=== PATIENT | female | born 1965 | race Caucasian/White ===

== ENCOUNTER 2023-09-28 14:23 | Inpatient (IN) | payer OTHER ==
[2023-09-28] MEDS: SODIUM CHLORIDE 0.9% 500 ML 500 ML IV ONE (15:01)
[2023-09-28 15:29] LABS: Basophils % (A) 0 %; Eosinophils # (A) 0.2 k/uL (0-0.7); Eosinophils % (A) 1 %; HCT 39.5 % (34.0-46.0); HGB 12.9 gm/dL (11.4-16.0); Lymphocytes # (A) 1.6 k/uL (1.0-4.8); Lymphocytes % (A) 9 %; MCH 28.5 pg (25.0-35.0); MCHC 32.5 g/dL (31.0-37.0); MCV 87.8 fL (80.0-100.0); Mean Platelet Volume 8.3; Monocytes # (A) 0.8 k/uL (0-1.0); Monocytes % (A) 4 %; Neutrophils # (A) 15.8 k/uL (1.3-7.7); Neutrophils % (A) 85 %; Platelet Count 339 k/uL (150-450); RDW 13.6 % (11.5-15.5); WBC 18.5 k/uL (3.8-10.6)
--- NOTE | 2023-09-28 15:29 | ED ---
General Adult HPI - General Chief complaint: Abdominal Pain Stated complaint: Abd pain Time Seen by Provider: 09/28/23 14:35 Source: patient, EMS, RN notes reviewed, old records reviewed Mode of arrival: ambulatory Limitations: no limitations - History of Present Illness Initial comments: This is a 58-year-old female who presents to the emergency department from [facility]. Patient was there because of abdominal pain. Patient was diagnosed with small bowel obstruction and colitis consistent with possibly Crohn's. Patient states she has no previous history of Crohn's. Patient states she was vomiting and had quite a bit of abdominal pain but currently she is not nauseous and only has mild pain because she was given antinausea medication and pain medicine. Patient has any chest pain difficulty breathing shortness of breath. Patient has any fever chills or cough. Patient states she initially went to [facility] but they were not taking care of her and she stayed in the waiting room for a while she got fed up so she had her friend drive her to [facility]. - Related Data Allergies Allergy/AdvReac Type Severity Reaction Status Date / Time bee venom protein (honey bee) Allergy Anaphylaxis Verified 09/28/23 14:40 ibuprofen [From Motrin] Allergy Abdominal Verified 09/28/23 14:40 Pain ketorolac [From Toradol] Allergy Itching Verified 09/28/23 14:40 Penicillins Allergy Unknown Verified 09/28/23 14:40 Childhood prochlorperazine Allergy Unknown Verified 09/28/23 14:40 [From Compazine] sulfamethoxazole Allergy Rash/Hives Verified 09/28/23 14:40 [From Bactrim] tetracycline Allergy Unknown Verified 09/28/23 14:40 Childhood trimethoprim [From Bactrim] Allergy Rash/Hives Verified 09/28/23 14:40 Review of Systems ROS Statement: Those systems with pertinent positive or pertinent negative responses have been documented in the HPI. ROS Other: All systems not noted in ROS Statement are negative. Past Medical History Additional Past Medical History / Comment(s): miagraine History of Any Multi-Drug Resistant Organisms: None Reported Past Surgical History: Cholecystectomy, Hysterectomy, Tonsillectomy Past Psychological History: Anxiety, Bipolar, Depression, PTSD Smoking Status: Former smoker Past Alcohol Use History: None Reported Past Drug Use History: None Reported General Exam - General Exam Comments Initial Comments: GENERAL: Patient is well-developed and well-nourished. Patient is nontoxic and well- hydrated and is in mild distress. ENT: Neck is soft and supple. No significant lymphadenopathy is noted. Oropharynx is clear. Moist mucous membranes. Neck has full range of motion without eliciting any pain. EYES: The sclera were anicteric and conjunctiva were pink and moist. Extraocular movements were intact and pupils were equal round and reactive to light. Eyelids were unremarkable. PULMONARY: Unlabored respirations. Good breath sounds bilaterally. No audible rales rhonchi or wheezing was noted. CARDIOVASCULAR: There is a regular rate and rhythm without any murmurs gallops or rubs. ABDOMEN: Patient has mild diffuse abdominal tenderness no point tenderness SKIN: Skin is clear with no lesions or rashes and otherwise unremarkable. NEUROLOGIC: Patient is alert and oriented x3. Cranial nerves II through XII are grossly intact. Motor and sensory are also intact. Normal speech, volume and content. Symmetrical smile. MUSCULOSKELETAL: Normal extremities with adequate strength and full range of motion. LYMPHATICS: No significant lymphadenopathy is noted PSYCHIATRIC: Normal psychiatric evaluation. Limitations: no limitations Course Vital Signs 09/28/23 14:33 Temperature 97.7 F Pulse Rate 73 Respiratory 18 Rate Blood Pressure 126/96 O2 Sat by Pulse 96 Oximetry Medical Decision Making - Medical Decision Making Was pt. sent in by a medical professional or institution (LENORE León, [facility], urgent care, hospital, or intermediate...) When possible be specific @ -Patient was sent to us from [facility] Did you speak to anyone other than the patient for history (EMS, parent, family, police, friend...)? What history was obtained from this source @ -The ER doc spoke to Dr. Hagen prior to arrival and gave an update on the patient's condition Did you review nursing and triage notes (agree or disagree)? Why? @ -I reviewed and agree with nursing and triage notes Were old charts reviewed (outside hosp., previous admission, EMS record, old EKG, old radiological studies, urgent care reports/EKG's, intermediate records)? Report findings @ -I reviewed the patient's charts from [facility] and all the lab work and CT scan. Differential Diagnosis? @ -Differential Abdominal Pain Women: Appendicitis, Cholecystitis, diverticulosis, ischemic bowel, pancreatitis, hepatitis, UTI, gastroenteritis, AAA, incarcerated hernia, bowel obstruction, constipation, inflammatory bowel, hepatitis, peptic ulcer disease, splenic infarction, perforated viscus, vulvitis, ovarian torsion, PID, kidney stone, placenta abruption, this is not meant to be an all-inclusive list EKG interpreted by me (3pts min.). @ -As above X-rays interpreted by me (1pt min.). @ -None done CT interpreted by me (1pt min.). @ -None done U/S interpreted by me (1pt. min.). @ -None done What testing was considered but not performed or refused? (CT, X-rays, U/S, labs)? Why? @ -None What meds were considered but not given or refused? Why? @ -None Did you discuss the management of the patient with other professionals (professionals i.e. , PA, BILLET SHEARER, lab, RT, psych nurse, social work supervisor, automatic corn grinder operator, teacher, combat systems officer, casework specialist)? Give summary @ -I spoke with patient [place] hospitalist agreed to admit the patient admit the patient wrote admitting orders Was smoking cessation discussed for >3mins.? @ -No Was critical care preformed (if so, how long)? @ -No Were there social determinants of health that impacted care today? How? (Homelessness, low income, unemployed, alcoholism, drug addiction, transpor tation, low edu. Level, literacy, decrease access to med. care, senior care, rehab)? @ -No Was there de-escalation of care discussed even if they declined (Discuss DNR or withdrawal of care, Hospice)? DNR status @ -No What co-morbidities impacted this encounter? (DM, HTN, Smoking, COPD, CAD, Cancer, CVA, ARF, Chemo, Hep., AIDS, mental health diagnosis, sleep apnea, morbid obesity)? @ -None Was patient admitted / discharged? Hospital course, mention meds given and route, prescriptions, significant lab abnormalities, going to OR and other pertinent info. @ -Patient's abdominal pain was minimal at this point time and her nausea was gone so I spoke with the hospitalist admit the patient I consulted surgery for the partial small bowel obstruction and ordered Zofran and pain medication for the patient. Patient also antibiotics started while she was in [facility] so I continue the antibiotics Undiagnosed new problem with uncertain prognosis? @ -No Drug Therapy requiring intensive monitoring for toxicity (Heparin, Nitro, Insulin, Cardizem)? @ -No Were any procedures done? @ -No Diagnosis/symptom? @ -Colitis Acute, or Chronic, or Acute on Chronic? @ -Acute Uncomplicated (without systemic symptoms) or Complicated (systemic symptoms)? @ -Complicated Side effects of treatment? @ -No Exacerbation, Progression, or Severe Exacerbation? @ -No Poses a threat to life or bodily function? How? (Chest pain, [place], ID, pneumonia, PE, COPD, DKA, ARF, appy, cholecystitis, CVA, Diverticulitis, Homicidal, Suicidal, threat to staff... and all critical care pts) @ -Yes this could lead to sepsis and endorgan dysfunction Diagnosis/symptom? @ -Partial small bowel obstruction Acute, or Chronic, or Acute on Chronic? @ -Acute Uncomplicated (without systemic symptoms) or Complicated (systemic symptoms)? @ -Complicated Side effects of treatment? @ -None Exacerbation, Progression, or Severe Exacerbation] @ -No Poses a threat to life or bodily function? @ -Yes this can lead to potential bowel or severe vomiting which could lead to electrolyte abnormalities. Disposition Clinical Impression: Partial small bowel obstruction, Colitis Disposition: ADMITTED IP TO THIS HOSP Referrals: Ricky Chawla DO [Primary Care Provider] - 1-2 days Time of Disposition: 15:28
[2023-09-28] MEDS: LEVOFLOXACIN 750MG-D5W PMX 750 MG in DEXTROSE/WATER 1 150ML.BAG IVPB SCH (15:36)
[2023-09-28] MEDS: SODIUM CHLORIDE 0.9% 1,000 ML IV ONE (15:42)
[2023-09-28 15:44] LABS: ALT 11 U/L (4-34); AST 18 U/L (14-36); African American GFR (CKD) >90 (>60 ml/min/1.73 sqM); Albumin 3.9 g/dL (3.5-5.0); Alkaline Phosphatase 94 U/L (38-126); Anion Gap 8 mmol/L; Blood Urea Nitrogen 12 mg/dL (7-17); Calcium 8.6 mg/dL (8.4-10.2); Carbon Dioxide 24 mmol/L (22-30); Chloride 112 mmol/L (98-107); Glucose 114 mg/dL (74-99); Non-African American GFR(CKD) >90 (>60 ml/min/1.73 sqM); Potassium 3.8 mmol/L (3.5-5.1); Sodium 144 mmol/L (137-145); Total Bilirubin 0.6 mg/dL (0.2-1.3); Total Protein 6.3 g/dL (6.3-8.2)
[2023-09-28] MEDS: metroNIDAZOLE-NS PMX 500 MG in SALINE 1 100ML.BAG IVPB SCH (17:06)
[2023-09-28] MEDS: ONDANSETRON 4 MG/2 ML VIAL IVP PRN (17:14)
[2023-09-28] MEDS: HYDROmorphone 0.5 MG/0.5 ML SYRINGE IVP PRN (17:48)
--- NOTE | 2023-09-28 18:56 | P.HPIM ---
History of Present Illness H&P Date: 09/28/23 Chief Complaint: Abdominal pain 58-year-old female who presents to the emergency department from [facility]. Patient was there because of abdominal pain. Patient was diagnosed with small bowel obstruction and colitis consistent with possibly Crohn's. Patient states she has no previous history of Crohn's. Patient states she was vomiting and had quite a bit of abdominal pain but currently she is not nauseous and only has mild pain because she was given antinausea medication and pain medicine. Patient has any chest pain difficulty breathing shortness of breath. Patient has any fever chills or cough. Patient states she initially went to [facility] but they were not taking care of her and she stayed in the waiting room for a while she got fed up so she had her friend drive her to [facility]. Blood work completed in ED reveals a WBC of 18.5, hemoglobin of 12.9 and platelet count of 339, sodium 144, potassium 3.8, BUNs/creatinine of 12/0.69 and blood glucose of 114 Review of Systems REVIEW OF SYSTEMS: CONSTITUTIONAL: No fever, no malaise, no fatigue. HEENT: No recent visual problems or hearing problems. Denied any sore throat. CARDIOVASCULAR: No chest pain, orthopnea, PND, no palpitations, no syncope. PULMONARY: No shortness of breath, no cough, no hemoptysis. GASTROINTESTINAL: No diarrhea, no nausea, no vomiting, no abdominal pain. NEUROLOGICAL: No headaches, no weakness, no numbness. HEMATOLOGICAL: Denies any bleeding or petechiae. GENITOURINARY: Denies any burning micturition, frequency, or urgency. MUSCULOSKELETAL/RHEUMATOLOGICAL: Denies any joint pain, swelling, or any muscle pain. ENDOCRINE: Denies any polyuria or polydipsia. The rest of the 14-point review of systems is negative. Past Medical History Additional Past Medical History / Comment(s): [facility] History of Any Multi-Drug Resistant Organisms: None Reported Past Surgical History: Cholecystectomy, Hysterectomy, Tonsillectomy Past Psychological History: Anxiety, Bipolar, Depression, PTSD Smoking Status: Former smoker Past Alcohol Use History: None Reported Past Drug Use History: None Reported Medications and Allergies Home Medications Medication Instructions Recorded Confirmed Type Atomoxetine HCl [Strattera] 40 mg PO DAILY 09/28/23 09/28/23 History Cyclobenzaprine [Flexeril] 10 mg PO TID PRN 09/28/23 09/28/23 History HYDROcodone/APAP 10-325MG [[place] 1 tab PO QID 09/28/23 09/28/23 History 10-325] Lansoprazole [Prevacid] 30 mg PO BID 09/28/23 09/28/23 History Metoprolol Succinate (ER) [Toprol 50 mg PO DAILY 09/28/23 09/28/23 History Xl] Propranolol [Inderal] 10 mg PO TID 09/28/23 09/28/23 History QUEtiapine XR [SEROquel XR] 150 mg PO HS 09/28/23 09/28/23 History Rosuvastatin Calcium [Crestor] 5 mg PO DAILY 09/28/23 09/28/23 History busPIRone HCL 15 mg PO BID PRN 09/28/23 09/28/23 History lamoTRIgine [LaMICtal] 100 mg PO DAILY 09/28/23 09/28/23 History lamoTRIgine [LaMICtal] 300 mg PO HS 09/28/23 09/28/23 History Allergies Allergy/AdvReac Type Severity Reaction Status Date / Time bee venom protein (honey bee) Allergy Anaphylaxis Verified 09/28/23 16:04 ibuprofen [From Motrin] Allergy Abdominal Verified 09/28/23 16:04 Pain ketorolac [From Toradol] Allergy Itching Verified 09/28/23 16:04 Penicillins Allergy Anaphylaxis Verified 09/28/23 16:04 prochlorperazine Allergy Unknown Verified 09/28/23 16:04 [From Compazine] sulfamethoxazole Allergy Anaphylaxis Verified 09/28/23 16:04 [From Bactrim] tetracycline Allergy Anaphylaxis Verified 09/28/23 16:05 trimethoprim [From Bactrim] Allergy Rash/Hives Verified 09/28/23 16:04 Physical Exam Vitals: Vital Signs Temp Pulse Resp BP Pulse Ox 09/28/23 15:42 74 18 155/76 94 L 09/28/23 14:33 97.7 F 73 18 126/96 96 Intake and Output 09/28/23 09/28/23 09/28/23 06:59 14:59 22:59 Other: Weight 77.111 kg GENERAL: Patient is well-developed and well-nourished. Patient is nontoxic and well- hydrated and is in mild distress. ENT:Neck is soft and supple. No significant lymphadenopathy is noted. Orop harynx is clear. Moist mucous membranes. Neck has full range of motion without eliciting any pain. EYES:The sclera were anicteric and conjunctiva were pink and moist. Extraocular movements were intact and pupils were equal round and reactive to light. Eyelids were unremarkable. PULMONARY:Unlabored respirations. Good breath sounds bilaterally. No audible rales rhonchi or wheezing was noted. CARDIOVASCULAR:There is a regular rate and rhythm without any murmurs gallops or rubs. ABDOMEN:Patient has mild diffuse abdominal tenderness no point tenderness SKIN: is clear with no lesions or rashes and otherwise unremarkable. NEUROLOGIC: Patient is alert and oriented x3. Cranial nerves II through XII are grossly intact. Motor and sensory are also intact. Normal speech, volume and content. Symmetrical smile. MUSCULOSKELETAL: Normal extremities with adequate strength and full range of m otion. LYMPHATICS:No significant lymphadenopathy is noted PSYCHIATRIC:Normal psychiatric evaluation. Results CBC & Chem 7: 09/28/23 15:00 09/28/23 15:00 Labs: Abnormal Lab Results - Last 24 Hours (Table) 09/28/23 09/28/23 Range/Units 15:00 15:00 WBC 18.5 H (3.8-10.6) k/uL Neutrophils # 15.8 H (1.3-7.7) k/uL Chloride 112 H (98-107) mmol/L Glucose 114 H (74-99) mg/dL Assessment and Plan Assessment: 1. Partial small bowel obstruction -Patient is being admitted for further surgery evaluation; remains n.p.o. -Started on IV fluids; we will monitor strict LASHONDA's; monitor renal function electrolytes -Will order abdominal x-ray with plans to insert an NG tube if bowel obstruction is worsening -Consult surgery for further evaluation 2. Colitis; patient has been placed on IV Levaquin and Flagyl; will cover continue with both medications; consult GI -Monitor CBC, CRP and procalcitonin 3. Hypertension; metoprolol 50 mg daily 4. Hyperlipidemia; Crestor 5 mg daily which will be placed on hold 5. Migraine headaches; patient takes Lamictal 100 mg every morning and 300 mg nightly 6. Bipolar disorder; currently on BuSpar, Seroquel and Strattera DVT prophylaxis; SCDs/subcu heparin CODE STATUS; full code
[2023-09-28] MEDS ORDERED: CYCLOBENZAPRINE 10 MG TAB PO PRN (21:46)
[2023-09-28] MEDS: PANTOPRAZOLE 40 MG/10 ML VIAL IVP SCH (21:56)
[2023-09-28] MEDS: QUEtiapine 25 MG TAB PO SCH (23:16)
[2023-09-28] MEDS: PROPRANOLOL 10 MG TAB PO SCH (23:16)
[2023-09-28] MEDS: METOPROLOL SUCCINATE (ER) 50 MG TAB.ER.24H PO SCH (23:16)
[2023-09-29] MEDS ORDERED: lamoTRIgine 100 MG TAB ONE ×2 (00:01→21:21)
[2023-09-29] MEDS ORDERED: QUEtiapine 25 MG TAB ONE ×2 (00:01→21:21)
[2023-09-29] MEDS ORDERED: PROPRANOLOL 10 MG TAB ONE (00:01)
[2023-09-29] MEDS ORDERED: metroNIDAZOLE-NS PMX 500 MG/100 ML BAG ONE (00:01)
[2023-09-29] MEDS ORDERED: METOPROLOL SUCCINATE (ER) 50 MG TAB.ER.24H PO ONE (00:01)
[2023-09-29] MEDS ORDERED: PANTOPRAZOLE 40 MG/10 ML VIAL ONE ×2 (00:01→21:20)
[2023-09-29] MEDS ORDERED: LEVOFLOXACIN 750MG-D5W PMX 750 MG/150 ML BAG IVPB ONE (00:01)
[2023-09-29] MEDS ORDERED: ATORVASTATIN 10 MG TAB ONE (00:01)
--- NOTE | 2023-09-29 01:52 | XR ---
EXAM: XR Chest, 1 View CLINICAL HISTORY: NG tube placement TECHNIQUE: Frontal view of the chest. COMPARISON: No relevant prior studies available. FINDINGS: Lungs: Subsegmental changes noted the lung bases, left slightly greater than right. No lobar consolidation. The pulmonary vasculature is unremarkable. Pleural space: No large pleural effusion or pneumothorax. Heart: Unremarkable. No cardiomegaly. Mediastinum: The mediastinal contours are unremarkable. No tracheal deviation. Bones/joints: Unremarkable. No acute fracture. Tubes, lines and devices: The nasogastric tube traverses the mediastinum and terminates immediately beyond the cardia of the stomach. The side-port is noted in the distal thoracic esophagus. IMPRESSION: The nasogastric tube traverses the mediastinum and terminates immediately beyond the cardia of the stomach. The side-port is noted in the distal thoracic esophagus. Recommend advancement approximately 5-6 cm for full placement of the stomach.
[2023-09-29 02:03] VITALS: BP 185/68; PULSE 72; RESP 16; TEMP 98.2
[2023-09-29] MEDS: busPIRone HCl 5 MG TAB PO PRN (03:37)
[2023-09-29] MEDS ORDERED: NON FORMULARY DRUG (Atomoxetine Hcl [Strattera] 40 MG Capsule) PO SCH (09:00)
[2023-09-29] MEDS ORDERED: ATORVASTATIN 10 MG TAB PO SCH (09:00)
[2023-09-29] MEDS ORDERED: PANTOPRAZOLE 40 MG TABLET PO SCH (09:00)
[2023-09-29] MEDS ORDERED: lamoTRIgine 100 MG TAB PO SCH ×2 (09:00→21:00)
[2023-09-29] MEDS ORDERED: metroNIDAZOLE-NS PMX 100 ML ONE ×2 (12:00→15:58)
[2023-09-29] MEDS ORDERED: HYDROmorphone 0.5 MG/0.5 ML SYRINGE ONE ×2 (12:00→18:01)
[2023-09-29] MEDS ORDERED: SALINE ONE ×2 (12:00→15:58)
--- NOTE | 2023-09-29 13:38 | XR ---
EXAM: XR Chest, 1 View CLINICAL HISTORY: ITS. REASON XR Reason: NG tube TECHNIQUE: Frontal view of the chest. COMPARISON: 09/28/23. FINDINGS/impression: Enteric tube has been advanced, the tip and side-port now projecting within the proximal stomach. Persistent enlargement of the cardiac silhouette. Question vascular congestion. Basilar opacities may reflect atelectasis, but airspace infiltrate is not excluded.
[2023-09-29] MEDS ORDERED: HEPARIN SODIUM,PORCINE 5,000 UNIT/ML 1 ML VIAL ONE (15:57)
[2023-09-30] MEDS ORDERED: SALINE ONE ×4 (00:22→18:22)
[2023-09-30] MEDS ORDERED: metroNIDAZOLE-NS PMX 100 ML ONE ×4 (00:22→18:22)
[2023-09-30] MEDS ORDERED: HYDROmorphone 0.5 MG/0.5 ML SYRINGE ONE ×4 (01:30→21:42)
[2023-09-30] MEDS ORDERED: HEPARIN SODIUM,PORCINE 5,000 UNIT/ML 1 ML VIAL ONE ×2 (08:52→15:29)
[2023-09-30] MEDS ORDERED: PANTOPRAZOLE 40 MG/10 ML VIAL ONE ×2 (08:52→21:11)
[2023-09-30] MEDS ORDERED: METOPROLOL SUCCINATE (ER) 50 MG TAB.ER.24H PO ONE (08:54)
[2023-09-30] MEDS ORDERED: lamoTRIgine 100 MG TAB ONE ×2 (08:54→21:11)
[2023-09-30] MEDS ORDERED: ATORVASTATIN 10 MG TAB ONE (08:54)
[2023-09-30] MEDS ORDERED: QUEtiapine 25 MG TAB ONE ×2 (08:55→21:12)
[2023-09-30] MEDS ORDERED: PROPRANOLOL 10 MG TAB ONE (09:00)
[2023-09-30] MEDS ORDERED: POTASSIUM CHLORIDE ER 20 MEQ TAB.ER PO ONE ×6 (12:15→14:12)
[2023-10-01] MEDS ORDERED: LEVOFLOXACIN 750MG-D5W PMX 750 MG/150 ML BAG IVPB ONE (00:01)
[2023-10-01] MEDS ORDERED: PROPRANOLOL 10 MG TAB ONE (00:01)
[2023-10-01] MEDS ORDERED: metroNIDAZOLE-NS PMX 100 ML ONE ×5 (00:27→23:38)
[2023-10-01] MEDS ORDERED: SALINE ONE ×5 (00:27→23:38)
[2023-10-01] MEDS ORDERED: HEPARIN SODIUM,PORCINE 5,000 UNIT/ML 1 ML VIAL ONE ×3 (00:28→23:39)
[2023-10-01] MEDS ORDERED: PANTOPRAZOLE 40 MG TABLET PO ONE ×2 (08:02→21:00)
[2023-10-01] MEDS ORDERED: lamoTRIgine 100 MG TAB ONE ×3 (08:03→21:04)
[2023-10-01] MEDS ORDERED: METOPROLOL SUCCINATE (ER) 50 MG TAB.ER.24H PO ONE (08:03)
[2023-10-01] MEDS ORDERED: ATORVASTATIN 10 MG TAB ONE (08:04)
[2023-10-01] MEDS ORDERED: QUEtiapine 25 MG TAB ONE ×2 (08:05→21:00)
[2023-10-01] MEDS ORDERED: SENNOSIDES 8.6 MG TAB ONE (10:03)
[2023-10-01] MEDS ORDERED: HYDROcodone/APAP 10-325MG 1 EACH TAB ONE ×4 (15:29→21:14)
[2023-10-02] MEDS ORDERED: LEVOFLOXACIN 750MG-D5W PMX 750 MG/150 ML BAG IVPB ONE (00:01)
[2023-10-02] MEDS ORDERED: PROPRANOLOL 10 MG TAB ONE (00:01)
[2023-10-02] MEDS ORDERED: metroNIDAZOLE-NS PMX 100 ML ONE ×3 (05:02→17:01)
[2023-10-02] MEDS ORDERED: SALINE ONE ×3 (05:02→17:01)
[2023-10-02] MEDS ORDERED: HYDROcodone/APAP 10-325MG 1 EACH TAB ONE ×4 (05:18→15:28)
[2023-10-02] MEDS ORDERED: HYDROmorphone 0.5 MG/0.5 ML SYRINGE ONE (08:23)
[2023-10-02] MEDS ORDERED: PANTOPRAZOLE 40 MG TABLET PO ONE ×2 (09:48→20:43)
[2023-10-02] MEDS ORDERED: HEPARIN SODIUM,PORCINE 5,000 UNIT/ML 1 ML VIAL ONE ×2 (09:48→15:09)
[2023-10-02] MEDS ORDERED: METOPROLOL SUCCINATE (ER) 50 MG TAB.ER.24H PO ONE (09:49)
[2023-10-02] MEDS ORDERED: QUEtiapine 25 MG TAB ONE ×2 (09:49→20:44)
[2023-10-02] MEDS ORDERED: lamoTRIgine 100 MG TAB ONE ×2 (09:49→20:44)
[2023-10-02] MEDS ORDERED: ATORVASTATIN 10 MG TAB ONE (09:49)
[2023-10-02] MEDS ORDERED: LORATADINE 10 MG TAB ONE (13:57)
[2023-10-02] MEDS ORDERED: POTASSIUM CHLORIDE ER 20 MEQ TAB.ER PO ONE ×2 (13:57)
[2023-10-02] MEDS ORDERED: ONDANSETRON 4 MG/2 ML VIAL ONE (18:13)
[2023-10-03] MEDS ORDERED: SALINE ONE ×2 (00:27→08:02)
[2023-10-03] MEDS ORDERED: metroNIDAZOLE-NS PMX 100 ML ONE ×2 (00:27→08:02)
[2023-10-03] MEDS ORDERED: HYDROcodone/APAP 10-325MG 1 EACH TAB ONE ×4 (02:46→12:04)
[2023-10-03] MEDS ORDERED: PANTOPRAZOLE 40 MG TABLET PO ONE (08:00)
[2023-10-03] MEDS ORDERED: METOPROLOL SUCCINATE (ER) 50 MG TAB.ER.24H PO ONE (08:01)
[2023-10-03] MEDS ORDERED: ATORVASTATIN 10 MG TAB ONE (08:01)
[2023-10-03] MEDS ORDERED: lamoTRIgine 100 MG TAB ONE (08:01)
[2023-10-03] MEDS ORDERED: QUEtiapine 25 MG TAB ONE (08:02)
[2023-10-03] MEDS ORDERED: HEPARIN SODIUM,PORCINE 5,000 UNIT/ML 1 ML VIAL ONE (08:02)
[2023-10-03] MEDS ORDERED: LORATADINE 10 MG TAB ONE (08:04)
--- NOTE | 2023-10-17 15:51 | HP ---
HISTORY AND PHYSICAL HISTORY OF PRESENT ILLNESS: The patient is a 58-year-old female who came in with complaints of abdominal pain, nausea, vomiting, was seen at an outside facility, found to have small-bowel obstruction, was transferred here. General Surgery was consulted. The patient has an NG tube in place. The patient did have a bowel movement and the patient is presently on Dilaudid for pain, will also use IV Tylenol for pain and general surgery and GI were consulted. REVIEW OF SYSTEMS: Further review of systems are negative except those mentioned above. PAST MEDICAL HISTORY: Hypertension, hyperlipidemia, migraine, PTSD, bipolar disorder, anxiety, depression. PAST SURGICAL HISTORY: Cholecystectomy, hysterectomy, and tonsillectomy. PRESENT MEDICATIONS: The patient is presently on, 1. Levofloxacin. 2. Metronidazole for possibility of colitis. 3. Ondansetron. 4. Hydromorphone. 5. Pantoprazole. 6. Cyclobenzaprine. 7. Lamictal. 8. Metoprolol. 9. Propranolol. 10.Atorvastatin. 11.Buspirone. 12.Protonix. 13.Seroquel. 14.Atomoxetine. VITAL SIGNS: Current vital signs are not available at this time because the computer system is unavailable at this time. PHYSICAL EXAMINATION: GENERAL: The patient is alert and oriented x3, not in any acute distress. Well developed, well nourished. HEENT: Pupils are round and equally reacting to light. EOMI. No scleral icterus. No conjunctival pallor. Normocephalic, atraumatic. No pharyngeal erythema. No thyromegaly. CARDIOVASCULAR: S1 and S2 present. No murmurs, rubs, or gallops. PULMONARY: Chest is clear to auscultation, no wheezing or crackles. MUSCULOSKELETAL: No joint swelling or deformity. EXTREMITIES: No cyanosis, clubbing, or pedal edema. NEUROLOGICAL: Gross neurological examination did not reveal any focal deficits. SKIN: No rashes. GASTROINTESTINAL: Bowel sounds present. No abdominal pain. No tenderness. The patient has an NG tube in place. ASSESSMENT AND PLAN: 1. Small-bowel obstruction/colitis. The patient will be continued on antibiotics, conservative measures, NG tube. The patient of normal saline due to surgery and GI followup. 2. History of migraine for which patient is on Lamictal, which will be continued. 3. Hyperlipidemia. Resume statin. 4. Hypertension. Her home medications are being held because of hypotension and patient is n.p.o. at this time. 5. Anxiety and depression. The patient will be resumed on appropriate home medications. NEREIDA / VENECIAN: [id number] / MTDD
--- NOTE | 2023-10-23 11:02 | XR ---
EXAMINATION TYPE: XR abdomen 2V DATE OF EXAM: 09/30/2023 CLINICAL INDICATION: Small bowel obstruction COMPARISON: None. TECHNIQUE: Two views of the abdomen were obtained. FINDINGS: Right upper quadrant glossectomy) is a gastric tube projecting over the gastric lumen. The bowel gas pattern is nonspecific without dilated loops of small or large bowel. There is no evidence for organomegaly or pneumoperitoneum. The osseous structures are intact. No abnormal calcifications a re present. Fecal material and gas are demonstrated throughout the colon and rectum. IMPRESSION: 1. Nonspecific bowel gas pattern without radiographic evidence for acute process. 2. Nasogastric tube in appropriate position.
--- NOTE | 2023-11-12 12:22 | FL ---
"Brielle Weinstein : 1965 EXAMINATION: XR small bowel follow-through DATE: 10/01/2023 11:38 AM COMPARISON: No priors available during downtime HISTORY: 58-year-old female abdominal pain, rule out small bowel obstruction. Total fluoroscopy time: 21 seconds. Total images: 12 Total DAP: 15 mGycm2 FINDINGS: Initial hat conditioner image shows nonobstructive bowel gas pattern. NG tube is present. Following administration of barium, serial films were carried out to 2 hours. Barium is seen to reach the colon. Loops of jejunum and ileum are compressed and examined under fluoroscopy. The small bowel loops have a normal-caliber. Mucosal pattern is within normal limits. No intrinsic or extrinsic process is suspected. IMPRESSION: 1. Small bowel transit time of 2 hours. No dilated bowel loops to suggest obstruction. 2. No other specific abnormality seen. Dictated by Dr. Guero Chavez" [facility], , 11/12/2023 12:20 PM
== END 2023-10-03 14:05 | disposition home or self-care (01) | DRG 247 ==
LOC: EC 14:23 → 5NMEDONC 15:33
PROVIDERS: ADMIT Hospitalist; ATTEND Hospitalist
DX: K56.600 Partial intestinal obstruction, unspecified as to cause (principal); E78.5 Hyperlipidemia, unspecified; F31.9 Bipolar disorder, unspecified; I10 Essential (primary) hypertension; F41.9 Anxiety disorder, unspecified; K52.9 Noninfective gastroenteritis and colitis, unspecified; F43.10 Post-traumatic stress disorder, unspecified; G43.909 Migraine, unspecified, not intractable, without status migrainosus; Z79.899 Other long term (current) drug therapy; Z88.0 Allergy status to penicillin; Z88.2 Allergy status to sulfonamides; Z87.891 Personal history of nicotine dependence; Z90.710 Acquired absence of both cervix and uterus
CPT/HCPCS: 36415; 74019; 74250; 80048; 80053; 83605; 83735; 84132; 85025; 85027; 96361; 96374; 99285